=== PATIENT | male | born 1970 | race Caucasian/White ===

== ENCOUNTER 2019-02-23 23:39 | Emergency (ER) | payer OTHER ==
[2019-02-24] MEDS ORDERED: Adacel (T-DAP) 0.5 ML SYRINGE ONE (03:16)
== END 2019-02-24 03:37 | disposition home or self-care (01) ==
LOC: ERS 23:39
DX: S61.411A Laceration without foreign body of right hand, initial encounter (principal); W26.0XXA Contact with knife, initial encounter
CPT/HCPCS: 12001; 90471; 90715

== ENCOUNTER 2022-10-26 10:09 | Outpatient (CLI) | payer BC | END 2022-10-26 10:10 | disposition home or self-care (01) | LOC: BICRAD 10:09 | PROVIDERS: ATTEND Family Medicine | DX: M25.461 Effusion, right knee (principal) ==